=== PATIENT | female | born 1985 | race Caucasian/White ===

== ENCOUNTER 2022-05-25 12:41 | Emergency (ER) | payer OTHER ==
[2022-05-25 12:48] VITALS: BP 155/97
[2022-05-25] MEDS ORDERED: SPIRONOLACTONE 25 MG TABLET PO STA (12:58)
--- NOTE | 2022-05-25 13:03 | ED Physician Documentation ---
PD KEVIN PETERS - Stated complaint Stated Complaint: MED REFIL - Chief complaint Chief Complaint: General - History obtained from History obtained from: Patient - History of Present Illness Timing - onset: How many days ago (The patient states she typically takes spironolactone 150 mg daily for several diagnoses combined: Hypertension, PCOS, acne. She had moved here recently and there was a mixup with the [facility] pharmacy in the did not have her prescription. She is needing to get mail order and will take another wk) Timing - duration: Days (She has been out of her medicines for 5 or 6 days. She is having some mild cramping related to the PCOS. 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) Derm: Other (acne) - Present Medications Home Medications: Ambulatory Orders Medication Instructions Recorded Confirmed Spironolactone [Aldactone] 150 mg PO DAILY 20 Days #30 tablet 05/25/22 - Allergies Allergies/Adverse Reactions: Allergies Allergy/AdvReac Type Severity Reaction Status Date / Time doxycycline Allergy Nausea Verified 05/25/22 12:49 minocycline Allergy Hives Verified 05/25/22 12:49 nifedipine Allergy Edema Verified 05/25/22 12:49 oxycodone Allergy Unknown Verified 05/25/22 12:49 Penicillins Allergy Hives Verified 05/25/22 12:49 PD ED PE NORMAL - Vitals Vital signs reviewed: Yes - General General: Alert and oriented X 3, No acute distress, Well developed/nourished - Derm Derm: Normal color, Warm and dry - Neuro Neuro: Alert and oriented X 3, Normal speech - Psych Psych: Normal mood, Normal affect Results - Vitals Vitals: Vital Signs - 24 hr 05/25/22 12:45 Temperature 36.9 C Heart Rate 83 Respiratory 16 Rate Blood Pressure 155/97 H O2 Saturation 100 Oxygen O2 Source Room air PD Medical Decision Making - ED course Complexity details: considered differential (The patient is out of her medication and has no timely mechanism for refill and is asking for short-term prescription until her usual prescription is available. This is reasonable and I we will transmitted to [facility] pharmacy.), d/w patient Departure - Departure Disposition: 01 Home, Self Care Clinical Impression: Encounter for medication refill, PCOS (polycystic ovarian syndrome) Condition: Stable Record reviewed to determine appropriate education?: Yes Prescriptions: Spironolactone [Aldactone] 150 mg PO DAILY 20 Days #30 tablet Comments: I transmitted prescription for your spironolactone to [facility] pharmacy in [place]. I provided 3 weeks worth to allow time for you to get a new prescription from your primary care and have it mailed in. Continue usual medication dosage eating. Return as needed.
== END 2022-05-25 13:11 | disposition home or self-care (01) ==
LOC: ED 12:41
DX: Z76.0 Encounter for issue of repeat prescription (principal); E28.2 Polycystic ovarian syndrome; I10 Essential (primary) hypertension
CPT/HCPCS: 99282; A9270

== ENCOUNTER 2023-02-06 11:05 | Emergency (ER) | payer OTHER ==
[2023-02-06 11:24] VITALS: BP 158/94; O2SAT 96
[2023-02-06 11:34] LABS: BILIRUBIN,URINE NEGATIVE (NEGATIVE); CLARITY,URINE CLEAR (CLEAR); GLUCOSE, URINE (UA) NEGATIVE (NEGATIVE); KETONES,URINE (UA) NEGATIVE (NEGATIVE); LEUKOCYTE ESTERASE, URINE NEGATIVE (NEGATIVE); NITRITE,URINE NEGATIVE (NEGATIVE); OCCULT BLOOD,URINE TRACE-INTA (NEGATIVE); PROTEIN,URINE NEGATIVE (NEGATIVE); UROBILINOGEN,URINE 0.2 (NORMAL) E.U./dL (NORMAL)
--- NOTE | 2023-02-06 12:15 | ED Physician Documentation ---
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 - Present Medications Home Medications: Ambulatory Orders Medication Instructions Recorded Confirmed Spironolactone [Aldactone] 150 mg PO DAILY 20 Days #30 tablet 05/25/22 02/06/23 Cetirizine [ZyrTEC] 10 mg PO ONCE 02/06/23 02/06/23 FLUoxetine [PROzac] 40 mg PO DAILY 02/06/23 02/06/23 buPROPion HCL [Bupropion Xl] 150 mg PO DAILY 02/06/23 02/06/23 norethindrone-e.estradioL-iron 1 each PO DAILY 02/06/23 02/06/23 [Microgestin Fe 1.5-30 Tab] - Allergies Allergies/Adverse Reactions: Allergies Allergy/AdvReac Type Severity Reaction Status Date / Time doxycycline Allergy Nausea Verified 05/25/22 12:49 minocycline Allergy Hives Verified 05/25/22 12:49 nifedipine Allergy Edema Verified 05/25/22 12:49 oxycodone Allergy Unknown Verified 05/25/22 12:49 Penicillins Allergy Hives Verified 05/25/22 12:49 - Social History Does the pt smoke?: No Smoking Status: Never smoker Does the pt drink ETOH?: No Does the pt have substance abuse?: No - Immunizations Immunizations are current?: Yes Departure - Departure Forms: PCP List <Yifan Larios - Last Filed: 02/06/23 12:24> PD HPI FEMALE - History obtained from History obtained from: Patient - Additional information Additional information: 38-year-old woman who is otherwise healthy. 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 It responded to Monistat, but subsequently she got another 1 which did not respond to Monistat. She wants to be sure that it is a yeast infection. And would like a prescription treatment. Results - Vitals Vitals: Vital Signs - 24 hr 02/06/23 11:16 Temperature 36 C L Heart Rate 87 Respiratory 16 Rate Blood Pressure 158/94 H O2 Saturation 96 Oxygen O2 Source Room air - Labs Labs: Laboratory Tests 02/06/23 10:22 Urine Color YELLOW Urine Clarity CLEAR Urine pH 6.0 Ur Specific [place] 1.025 Urine Protein NEGATIVE Urine Glucose (UA) NEGATIVE Urine Ketones NEGATIVE Urine Occult Blood TRACE-INTA Urine Nitrite NEGATIVE Urine Bilirubin NEGATIVE Urine Urobilinogen 0.2 (NORMAL) Ur Leukocyte Esterase NEGATIVE Ur Microscopic Review NOT INDICATED Urine Culture Comments NOT INDICATED
--- NOTE | 2023-02-06 13:11 | ED Physician Documentation ---
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 Initially it was responsive to Monistat but subsequently had a recurrence which was not responsive to Monistat. 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 - Present Medications Home Medications: Ambulatory Orders Medication Instructions Recorded Confirmed Spironolactone [Aldactone] 150 mg PO DAILY 20 Days #30 tablet 05/25/22 02/06/23 Cetirizine [ZyrTEC] 10 mg PO ONCE 02/06/23 02/06/23 FLUoxetine [PROzac] 40 mg PO DAILY 02/06/23 02/06/23 Fluconazole 150 mg PO ONCE #1 tablet 02/06/23 buPROPion HCL [Bupropion Xl] 150 mg PO DAILY 02/06/23 02/06/23 metroNIDAZOLE [Flagyl] 500 mg PO BID 7 Days #14 tablet 02/06/23 norethindrone-e.estradioL-iron 1 each PO DAILY 02/06/23 02/06/23 [Microgestin Fe 1.5-30 Tab] - Allergies Allergies/Adverse Reactions: Allergies Allergy/AdvReac Type Severity Reaction Status Date / Time doxycycline Allergy Nausea Verified 05/25/22 12:49 minocycline Allergy Hives Verified 05/25/22 12:49 nifedipine Allergy Edema Verified 05/25/22 12:49 oxycodone Allergy Unknown Verified 05/25/22 12:49 Penicillins Allergy Hives Verified 05/25/22 12:49 - Social History Does the pt smoke?: No Smoking Status: Never smoker Does the pt drink ETOH?: No Does the pt have substance abuse?: No - Immunizations Immunizations are current?: Yes PD ED PE NORMAL - Vitals Vital signs reviewed: Yes - General General: Alert and oriented X 3, No acute distress - Female Female : Other (She did self swabs for STD and BV and yeast testing.) - Neuro Neuro: Alert and oriented X 3, Normal speech Results - Vitals Vitals: Vital Signs - 24 hr 02/06/23 11:16 Temperature 36 C L Heart Rate 87 Respiratory 16 Rate Blood Pressure 158/94 H O2 Saturation 96 Oxygen O2 Source Room air - Labs Labs: Microbiology 02/06/23 12:20 Wet Prep - Final Vaginal Laboratory Tests 02/06/23 02/06/23 10:22 12:20 Urine Color YELLOW Urine Clarity CLEAR Urine pH 6.0 Ur Specific [place] 1.025 Urine Protein NEGATIVE Urine Glucose (UA) NEGATIVE Urine Ketones NEGATIVE Urine Occult Blood TRACE-INTA Urine Nitrite NEGATIVE Urine Bilirubin NEGATIVE Urine Urobilinogen 0.2 (NORMAL) Ur Leukocyte Esterase NEGATIVE Ur Microscopic Review NOT INDICATED Urine Culture Comments NOT INDICATED C. glabrata (PCR) NEGATIVE C. krusei (PCR) NEGATIVE Ivon species DNA POSITIVE A T. vaginalis (PCR) NEGATIVE Bact Vaginosis (PCR) NEGATIVE PD Medical Decision Making - ED course ED course: Clue cells most consistent with BV although less than 20% but yeast negative, will treat with Flagyl pending BV PCR and STD testing which take much longer. Subsequent to discharge her vaginitis PCR was positive for Ivon. I sent a prescription for Diflucan 150 mg p.o. x1 to [facility] and called the patient to update her. She did not answer and I left a voicemail to call me back. Departure - Departure Disposition: 01 Home, Self Care Clinical Impression: Bacterial vaginosis Condition: Good Record reviewed to determine appropriate education?: Yes Instructions: ED Vaginosis Bacterial Prescriptions: metroNIDAZOLE [Flagyl] 500 mg PO BID 7 Days #14 tablet Comments: The initial testing looks like more likely bacterial vaginosis as opposed to yeast infection. This is not an STD. It is treated with antibiotics but something different than what we would use for yeast infection. More formal t esting is pending and we will call you for any changes. Do not drink alcohol while on the antibiotic. We will make you quite ill. Return if worse. Forms: PCP List Discharge Date/Time: 02/06/23 13:24
[2023-02-06 14:45] LABS: BACTERIAL VAGINOSIS DNA NEGATIVE (NEGATIVE); CANDIDA GLABRATA DNA NEGATIVE (NEGATIVE); CANDIDA GROUP DNA POSITIVE (NEGATIVE); CANDIDA KRUSEI DNA NEGATIVE (NEGATIVE); TRICHOMONAS VAGINALIS DNA NEGATIVE (NEGATIVE)
[2023-02-06 15:51] LABS: CHLAMYDIA TRACHOMATIS DNA NEGATIVE (NEGATIVE); NEISSERIA GONORRHOEAE DNA NEGATIVE (NEGATIVE)
== END 2023-02-06 13:24 | disposition home or self-care (01) ==
LOC: ED 11:05
DX: B37.31 Acute candidiasis of vulva and vagina (principal)
CPT/HCPCS: 81001; 81003; 81514; 87086; 87210; 87491; 87591; 87661; 99283; 99284

== ENCOUNTER 2023-05-05 11:00 | Outpatient (CLI) | payer OTHER ==
[2023-05-05 17:44] LABS: BASOPHILS % (AUTO) 0.4 %; EOSINOPHILS # (AUTO) 0.1 10^3/uL (0.0-0.7); EOSINOPHILS % (AUTO) 0.5 %; HCT - HEMATOCRIT 46.8 % (37.0-47.0); HGB - HEMOGLOBIN 14.7 g/dL (12.0-16.0); LYMPHOCYTES # (AUTO) 2.3 10^3/uL (1.5-3.5); LYMPHOCYTES % (AUTO) 23.1 %; MEAN CORPUSCULAR HEMOGLOBIN 28.1 pg (27.0-31.0); MEAN CORPUSCULAR HGB CONC 31.4 g/dL (32.0-36.0); MEAN CORPUSCULAR VOLUME 89.3 fL (81.0-99.0); MEAN PLATELET VOLUME 9.4 fL (7.9-10.8); MONOCYTES # (AUTO) 0.6 10^3/uL (0.0-1.0); MONOCYTES % (AUTO) 5.5 %; NEUTROPHILS % (AUTO) 70.2 %; PLT - PLATELET COUNT 451 10^3/uL (130-450); RED BLOOD COUNT 5.24 10^6/uL (4.20-5.40)
[2023-05-05 17:50] LABS: INFECTIOUS MONONUCLEOSIS NEGATIVE (Negative)
[2023-05-05 18:10] LABS: % IRON SATURATION 28 % (20-50); ALBUMIN 4.1 g/dL (3.2-5.5); ALBUMIN/GLOBULIN RATIO 1.4 (1.0-2.2); ALKALINE PHOSPHATASE 61 IU/L (42-121); ALT ALANINE AMINOTRANSFERASE 17 IU/L (10-60); AST ASPARTATE AMINOTRANSFERASE 12 IU/L (10-42); BILIRUBIN,TOTAL 0.4 mg/dL (0.2-1.0); BUN - BLOOD UREA NITROGEN 10 mg/dL (6-20); CALCIUM 9.8 mg/dL (8.5-10.3); CARBON DIOXIDE - CO2 28 mmol/L (21-32); CHLORIDE 101 mmol/L (101-111); CREATININE 0.7 mg/dL (0.6-1.3); CRP - C-REACTIVE PROTEIN 1.1 mg/dL (<0.5); GFR - MDRD 94 (>89); GLUCOSE 77 mg/dL (74-104); IRON 123 ug/dL (50-212); POTASSIUM 4.2 mmol/L (3.5-4.5); SODIUM 136 mmol/L (135-145); TOTAL IRON BINDING CAPACITY 442 ug/dL (250-450); TOTAL PROTEIN 7.1 g/dL (6.4-8.9); TRANSFERRIN 316 mg/dL (203-362)
[2023-05-05 18:26] LABS: THYROID STIMULATING HORMONE 0.85 uIU/mL (0.34-5.60)
[2023-05-05 18:32] LABS: FERRITIN 85.9 ng/mL (11.0-306.8)
[2023-05-05 18:39] LABS: LIPASE < 10 U/L (11-82)
[2023-05-05 21:26] LABS: ESTIMATED AVERAGE GLUCOSE 88 mg/dL (70-100); HEMOGLOBIN A1c% 4.7 % (4.27-6.07)
== END 2023-05-05 11:15 | disposition home or self-care (01) ==
LOC: LAB.N 11:00
PROVIDERS: ATTEND Registered Nurse
DX: G47.10 Hypersomnia, unspecified (principal); Z91.018 Allergy to other foods; E28.2 Polycystic ovarian syndrome; R11.0 Nausea; R53.83 Other fatigue; R53.81 Other malaise
CPT/HCPCS: 36415; 80053; 82728; 83036; 83540; 83690; 84443; 84466; 85025; 86140; 86308

== ENCOUNTER 2023-06-02 10:08 | Outpatient (CLI) | payer OTHER ==
--- NOTE | 2023-06-02 11:27 | Sleep Patient Instructions ---
Sleep Center Visit Summary - Patient Visit Information Reason for Visit: Initial consult for evaluation of sleep disordered breathing and other sleep issues. - Patient Instructions Instructions Attached: Sleep Study, Sleep Study Home Monitor Additional Instructions: You will be completing a sleep study, either an in-lab polysomnography (PSG) or home sleep study (HST). You will follow-up in the sleep care office after the sleep study is completed to hear the results and talk about therapy, if needed. You will be called by our office staff to schedule this appointment, but you may contact us with any questions. - Clinic Information Contact: [facility] [address] [place] [id number] [email or web address] T: [phone]
--- NOTE | 2023-06-02 11:31 | SLEEP CARE CONSULTATION ---
Information from patient questionnaire entered by Stephanie Wakefield. I have reviewed and concur with the information entered by Stephanie Wakefield. This document represents the service I personally performed and the decisions made by me, Skyla Jimenez ARNP. History of Present Illness Service Date and Time: 06/02/2023 1008 Reason for Visit: New patient Chief Complaint: reports: Unrefreshed sleep, Excessive daytime sleepiness, Fatigue, Frequent awakenings at night Date of Onset: 2-3 MONTHS increase; has been going on for long time Usual bedtime: 10PM Time it takes to fall asleep: 5MINS Snores at night: Yes (slight soft snore according to ) Observed to quit breathing while asleep: Yes (occasionally) Sleeps alone due to snoring: No Number of times waking at night: 2-3, usually only 1 Reasons for waking at night: reports: Bathroom, Other (NOISE). denies: Choking, Gasping for air Toss, Turn, or Twitch while sleeping: Yes Recalls having dreams: Yes Usually gets out of bed at: 7AM Feels refreshed in the morning: No Morning headache: No Sleepy or fatigued during the day: Yes Ever fallen asleep while driving: No Takes day naps: Yes (on weekends mostly, occasionally on Thursday if get home early; 3-4 hrs) Dreams during day naps: No Prior sleep studies: No Additional HPI information: I had the pleasure of seeing JAMILA QUINTANILLA today regarding the possibility of her having a sleep disorder. Her current complaints are unrefreshed sleep, excessive daytime sleepiness, fatigue and frequent night awakenings. She says she has been exhausted for a long time. She is really active with children activities and thought this was the reason. She says she will take 3-4 hour naps on weekends even after sleeping for 10 hours the previous night. She does not wake up feeling refreshed. She is treated for anxiety and depression and although it increased her energy for a time she is back to feeling exhausted. She says her says she only snores lightly and he has occasionally noted that she stopped breathing when sleeping. She denies waking up gasping for air or feeling like she is choking. She normally wakes up once to go to the bathroom. 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 Patient is and lives in [place]. Have you smoked in the past 12 months: No Alcohol use: No Caffeine use: Yes Caffeine amount and frequency: 1 CAN COKE 3X WEEK OR 1 ELINOR TEA LATTE Family History Family history of sleep disordered breathing: Yes (Aunt had CPAP) Family Hx Sleep Apnea: Mother: Snoring, Father: Snoring, Grandparent: Snoring, Sleep apnea - Treated Allergies and Home Medications Known drug allergies: Yes ( LISTED) Drug allergies reviewed: Yes Home medication list reviewed: Yes (see updated list in EMR) Allergy and home medication list: Allergies doxycycline Allergy (Verified 05/29/23 13:39) Nausea minocycline Allergy (Verified 05/29/23 13:39) Hives nifedipine Allergy (Verified 05/29/23 13:39) Edema oxycodone Allergy (Verified 05/29/23 13:39) Unknown Penicillins Allergy (Verified 05/29/23 13:39) Hives Review of Systems Weight loss over past 5 years: 5 Cardiovascular: reports: high blood pressure, palpitations Gastrointestinal: reports: difficulty swallowing, nausea Neurological: reports: headaches Psychiatric: reports: Attention Deficit Hyperactivity, anxiety, depression Ear/Nose/Throat: reports: nasal congestion, sinus problems, wisdom teeth removed. denies: tonsillectomy Endocrine: reports: sluggishness, too hot or cold, increased appetite Musculoskeletal: reports: neck pain, back pain, muscle pain or cramping Immunologic: reports: sneezing, rash, itching, allergies to food or environment (wheat, soy, sesame, lactose intolerant) Physical Exam Vital signs obtained and entered by: SYKLA CONNOR Blood Pressure: 129/86 Cuff size: wrist (left) Heart Rate: 89 O2 Saturation: 99 Height: 5 ft 5 in Weight: 247 lb Body Mass Index: 41.1 BMI Classification: Morbidly Obese Neck circumference: 14.5 (inches) Mouth and throat: normal Soft palate: normal Hard palate: normal Uvula: normal Uvula visualization: 100% Mallampati Class I Tongue: enlarged in size with teeth jean-baptiste on lateral edges Tonsils: 1+ Neck: normal w/o lymphadenopathy or thyromegaly Heart: regular rate and rhythm Lungs: clear bilaterally Impression and Plan 1. Suspected Obstructive Sleep Apnea-Hypopnea Syndrome, as suggested by a history of irregular snoring, observed cessation of breath while asleep, unrefreshed sleep, cognitive impairment, and excessive daytime sleepiness. Narrow oropharynx and obesity are common predisposing factors for obstructive sleep apnea-hypopnea syndrome. I recommend proceeding to polysomnography to con firm the diagnosis and to assess severity. If the patient has significant sleep disordered breathing, a manual CPAP titration study will also be performed to find the optimal treatment pressure. I informed the patient of what the sleep studies involve and after some discussion, obtained agreement to proceed. The pathophysiology of obstructive sleep apnea-hypopnea syndrome was discussed with the patient and health risks of cardiovascular and cerebrovascular disease if not treated. Risks of drowsy driving discussed in detail and patient advised to avoid long distance driving and to taffy puller at the first sign of drowsiness. Patient agreed to plan. * Schedule polysomnography * Avoid long distance driving or driving when feeling sleepy. * Avoid alcohol, sedative and muscle relaxant around bedtime. * Attempt to lose weight. * Review instructions provided by trained office staff on how to prepare for the sleep study. * Return for follow-up after sleep study completed. Counseling Topics: Weight loss health impact Follow up with Sleep Care in: other (after sleep study) Plan: PSG/HST Visit Type: In Office Time Spent with Patient (minutes): 31 Provider Statement: I spent 100% of the Face to Face Visit with the patient with greater than 50% spent counseling the patient and coordination of care.
[2023-06-02 11:46] VITALS: BP 129/86; O2SAT 99
== END 2023-06-02 10:09 | disposition home or self-care (01) ==
LOC: SC 10:08
PROVIDERS: ATTEND Nurse Practitioner Family
DX: R06.83 Snoring (principal); R06.81 Apnea, not elsewhere classified; G47.8 Other sleep disorders; R41.89 Other symptoms and signs involving cognitive functions and awareness; G47.10 Hypersomnia, unspecified; E66.01 Morbid (severe) obesity due to excess calories; Z68.41 Body mass index [BMI] 40.0-44.9, adult; R53.83 Other fatigue
CPT/HCPCS: 99203; 99212

== ENCOUNTER 2023-06-12 19:19 | Outpatient (CLI) | payer OTHER | END 2023-06-12 19:20 | disposition home or self-care (01) | LOC: SC 19:19 | PROVIDERS: ATTEND Nurse Practitioner Family | DX: G47.61 Periodic limb movement disorder (principal) | CPT/HCPCS: 95810 ==

== ENCOUNTER 2023-06-23 09:31 | Outpatient (CLI) | payer OTHER ==
--- NOTE | 2023-06-23 09:52 | Sleep Patient Instructions ---
Sleep Center Visit Summary - Patient Visit Information Reason for Visit: Sleep study follow-up - Patient Instructions Additional Instructions: You will be completing a sleep study, either an in-lab polysomnography (PSG) or home sleep study (HST). You will follow-up in the sleep care office after the sleep study is completed to hear the results and talk about therapy, if needed. You will be called by our office staff to schedule this appointment, but you may contact us with any questions. - Clinic Information Contact: [facility] [address] [place] [id number] [email or web address] T: [phone]
--- NOTE | 2023-06-23 10:00 | SLEEP CARE CONSULTATION ---
Information from patient questionnaire entered by Stephanie Wakefield. I have reviewed and concur with the information entered by Stephanie Wakefield. This document represents the service I personally performed and the decisions made by , Skyla Jimenez ARNP. History of Present Illness Service Date and Time: 06/23/2023930 Initial [place] Sleepiness Scale score: 14 (05/02/23) Current [place] Sleepiness Scale score: 12 Additional HPI information: JAMILA QUINTANILLA returns for follow up and results of the recently performed polysomnography. The patient was informed of the following findings: No significant sleep disordered breathing with an average AHI of 3.6 and [place] oxygen saturation of 87%. She has mild PLMs not contributing to sleep fragmentation. I explained the pathophysiology behind obstructive sleep apnea. Patient does not have sleep apnea and was advised how weight gain could increase the risk of developing sleep apnea in the future. I strongly encouraged the patient to lose weight. Patient has mild snoring. Patient was cautioned about risks of drowsy driving until sleepiness symptoms resolve. Patient denies drowsy driving. Sleep Study - Results Type of Sleep Study: Polysomnography (COMPLETED 06/12/23) Prior sleep studies: No Polysomnography/Home Sleep Study results: IMPRESSION: The quality of the study is good. The patient had minimally reduced sleep efficiency. Except for mild sleep fragmentation, the sleep architecture was normal. Respiratory monitoring showed no significant sleep disordered breathing (AHI = 3.6) or hypoxia ([place] oxygen saturation of 87%). The respiratory events occurred mainly during REM sleep (supine AHI = 0.0; non-supine = 3.78). Snore was light to loud in intensity. There was mild periodic leg movement of sleep not contributing to the sleep fragmentation. Cardiac rhythm was normal sinus rhythm without significant arrhythmia. No abnormal behavior (parasomnia) ob served during the night. Allergies and Home Medications Known drug allergies: Yes (as listed) Drug allergies reviewed: Yes Home medication list reviewed: Yes (no changes) Allergy and home medication list: Allergies doxycycline Allergy (Verified 06/19/23 10:43) Nausea minocycline Allergy (Verified 06/19/23 10:43) Hives nifedipine Allergy (Verified 06/19/23 10:43) Edema oxycodone Allergy (Verified 06/19/23 10:43) Unknown Penicillins Allergy (Verified 06/19/23 10:43) Hives Physical Exam Vital signs obtained and entered by: SKYLA CONNOR Blood Pressure: 159/89 Cuff size: regular Heart Rate: 90 O2 Saturation: 98 Height: 5 ft 5 in Weight: 248 lb 3.2 oz Body Mass Index: 41.3 BMI Classification: Morbidly Obese Impression and Plan 1. Suspected Obstructive Sleep Apnea-Hypopnea Syndrome, as suggested by a histor y of loud and irregular snoring, observed cessation of breath while asleep, frequent awakening during the night, unrefreshed sleep, cognitive impairment, and excessive daytime sleepiness. Patient completed an in lab PSG which showed no significant sleep disordered breathing however she had very little supine sleep. She did try to lay on her back but could not fall asleep when supine and the database technician recommended she ask for a sleep aid to help her to relax and fall asleep easier. I recommend proceeding to polysomnography to confirm the diagnosis and to assess severity. I obtained agreement to proceed. The pathophysiology of obstructive sleep apnea-hypopnea syndrome was discussed with the patient and health risks of cardiovascular and cerebrovascular disease if not treated. Risks of drowsy driving discussed in detail and patient advised to avoid long distance driving and to brisket puller at the first sign of drowsiness. Patient agreed to plan. 2. Periodic limb movement, mild, that did not fragment patients sleep. Periodic limb movement of sleep (PLMS) is characterized by episodes of repetitive limb movements that occur during sleep and usually involve the lower limbs. The marta ology is unknown. Caffeine can also aggravate PLMS and should be avoided. Sleep hygiene methods can also improve sleep as well as lifestyle changes such as regular exercise. Patient was advised that no treatment is needed at this time. If symptoms increase, then further evaluation is indicated. 3. Obesity, unspecified. Currently patients BMI is 41.3. Obesity increases the risk of apnea, CPAP pressure requirements and overall health risks especially cardiovascular and diabetes. Thus patient is advised to lose weight. * Schedule polysomnography +- manual CPAP titration study and return in 1-2 weeks after the study to discuss result and initiate therapy. * Zolpidem 5 mg for night of sleep study * Avoid long distance driving or driving when feeling sleepy. * Avoid alcohol, sedative and muscle relaxant around bedtime. * Attempt to lose weight. * Review instructions provided by trained office staff on how to prepare for the sleep study. * Return for follow-up after sleep study completed. Counseling Topics: Weight loss health impact Prescriptions: Other (Zolpidem 5 mg for night of sleep study) Follow up with Sleep Care in: other (after sleep study) Plan: PSG Visit Type: In Office Time Spent with Patient (minutes): 22 Provider Statement: I spent 100% of the Face to Face Visit with the patient with greater than 50% spent counseling the patient and coordination of care.
[2023-06-23 10:02] VITALS: BP 159/89; O2SAT 98
== END 2023-06-23 09:32 | disposition home or self-care (01) ==
LOC: SC 09:31
PROVIDERS: ATTEND Nurse Practitioner Family
DX: R06.83 Snoring (principal); G47.8 Other sleep disorders; R06.81 Apnea, not elsewhere classified; G47.10 Hypersomnia, unspecified; R53.83 Other fatigue; R41.89 Other symptoms and signs involving cognitive functions and awareness; F32.A Depression, unspecified; I10 Essential (primary) hypertension; E66.01 Morbid (severe) obesity due to excess calories; Z68.41 Body mass index [BMI] 40.0-44.9, adult
CPT/HCPCS: 99212; 99213

== ENCOUNTER 2023-10-26 10:14 | Emergency (ER) | payer OTHER ==
--- NOTE | 2023-10-26 12:02 | ED Physician Documentation ---
PD HPI BACK PAIN - Stated complaint Stated Complaint: LOWER BACK PX - Chief complaint Chief Complaint: Back Pain - History obtained from History obtained from: Patient - History of Present Illness Timing - onset: How many days ago (3) Timing - duration: Days (3) Timing - details: Abrupt onset, Still present Pain level max: 8 Pain level now: 8 Location: Mid, Lower, Right, Left Quality: Pain, Spasm, Sharp, Similar to prior episodes Associated symptoms: No: Fever, Weakness, Numbness, Incontinent of urine, Unable to urinate, Hematuria, Incontinent of stool Improves with: Rest, Position, Meds Worsened by: Movement, Twisting, Palpation Contributing factors: Other (has physical therapy for back pain and after therapy last week pain is much worse) Similar symptoms before: Diagnosis (lumbar pain) Recently seen: Other (seen for physical therapy no imaging has been done.) - Additional information Additional information: 38-year-old Vonnie Maloney has a history of chronic back pain and over the past year she has been undergoing physical therapy. She will occasionally have a worsening of her pain associated with the physical therapy and this past Thursday she had a significant increase in her back pain up to a 8 out of 10 level. She has pain bad enough that she is unable to go to work today. Review of Systems Constitutional: denies: Fever Respiratory: denies: Cough GI: denies: Vomiting, Diarrhea : denies: Dysuria, Frequency Musculoskeletal: reports: Back pain. 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: Ovarian cysts, Other Musculoskeletal: Chronic back pain Derm: Other - Past Surgical History Past Surgical History: Yes General: Other /GLUE MAKER BONE: section - Present Medications Home Medications: Ambulatory Orders Medication Instructions Recorded Confirmed Spironolactone [Aldactone] 150 mg PO DAILY 20 Days #30 tablet 05/25/22 10/26/23 Cetirizine [ZyrTEC] 10 mg PO ONCE 02/06/23 10/26/23 FLUoxetine [PROzac] 40 mg PO DAILY 02/06/23 10/26/23 buPROPion HCL [Bupropion Xl] 150 mg PO DAILY 02/06/23 10/26/23 norethindrone-e.estradioL-iron 1 each PO DAILY 02/06/23 10/26/23 [Microgestin Fe 1.5-30 Tab] Cholecalciferol (Vitamin D3) 1 cap PO DAILY 10/26/23 10/26/23 [Vitamin D3] Cyclobenzaprine [Flexeril] 10 mg PO TID PRN #20 tablet 10/26/23 HYDROcod/ACETAM 5/325 [Sixes 5/325] 1 - 2 tablet PO Q6H PRN #14 tablet 10/26/23 - Allergies Allergies/Adverse Reactions: Allergies Allergy/AdvReac Type Severity Reaction Status Date / Time doxycycline Allergy Nausea Verified 06/19/23 10:43 minocycline Allergy Hives Verified 06/19/23 10:43 nifedipine Allergy Edema Verified 06/19/23 10:43 oxycodone Allergy Unknown Verified 06/19/23 10:43 Penicillins Allergy Hives Verified 10/26/23 11:11 wheat Allergy Anaphylaxis Verified 10/26/23 11:11 - Social History Does the pt smoke?: No Smoking Status: Never smoker Does the pt drink ETOH?: No Does the pt have substance abuse?: No - Immunizations Immunizations are current?: Yes - POLST Patient has POLST: No PD ED PE NORMAL - Vitals Vital signs reviewed: Yes (hypertensive ) - General General: Alert and oriented X 3, No acute distress, Well developed/nourished - HEENT HEENT: Atraumatic, PERRL, EOMI - Respiratory Respiratory: No respiratory distress - Back Back: No CVA TTP, No spinal TTP, Other (mild point tenderness to the paraspinous muscles of the lower lumbar spine. No midline tenderness. ) - Derm Derm: Normal color, Warm and dry, No rash - Extremities Extremities: No deformity, No edema - Neuro Neuro: Alert and oriented X 3, joint terminal attack controller 2-12 intact, No motor deficit, No sensory deficit, Normal speech Eye Opening: Spontaneous Motor: Obeys Commands Verbal: Oriented GCS Score: 15 - Psych Psych: Normal mood, Normal affect Results - Vitals Vitals: Vital Signs - 24 hr 10/26/23 10/26/23 10:25 12:29 Temperature 36.3 C L Heart Rate 86 76 Respiratory 20 18 Rate Blood Pressure 151/90 H 146/86 H O2 Saturation 97 100 Oxygen O2 Source Room air PD Medical Decision Making - ED course Complexity details: reviewed results, re-evaluated patient, considered differential, d/w patient ED course: 38-year-old female undergoing physical therapy for chronic neck pain as an exacerbation of her back pain she is administered dexamethasone and Toradol with improvement will provide some pain medication a muscle relaxant for a short- term. She is encouraged to continue physical therapy and to seek imaging if she has no improvement. Departure - Departure Disposition: 01 Home, Self Care Clinical Impression: Back pain Qualifiers: Back pain location: low back pain Chronicity: chronic Back pain laterality: bilateral Sciatica presence: without sciatica Qualified Code(s): M54.50 - Low back pain, unspecified Condition: Stable Instructions: ED Low Back Pain Injury, ED Chronic Pain Management Follow-Up: [facility] [Provider Group] Prescriptions: Cyclobenzaprine [Flexeril] 10 mg PO TID PRN #20 tablet PRN Reason: Spasms HYDROcod/ACETAM 5/325 [Sixes 5/325] 1 - 2 tablet PO Q6H PRN #14 tablet PRN Reason: Pain Comments: Scyntha, today it looks like you have an exacerbation of your chronic back pain and we have given you some medication that may help quite a bit over the next day. We have given you some dexamethasone and some Toradol. If you continue to have pain that is not relieved by your usual medications of ibuprofen and Tylenol we have E scribed some pain medication to the [facility] in [place]. We have given you some muscle relaxant as well and this medication does not do anything specifically to the muscles but does make it easier for you to sleep and sometimes a bit of sleep is enough to improve things dramatically. If you do not have improvement in your pain a follow-up with your primary care doctor for referral for MRI may be indicated. Discharge Date/Time: 10/26/23 12:29
[2023-10-26] MEDS: DEXAMETHASONE 10 MG/ML VIAL PO STA ×2 (12:15→12:16)
[2023-10-26] MEDS: KETOROLAC 30 MG/ML VIAL IM STA (12:16)
[2023-10-26] MEDS: CHERRY SYRUP 10 ML UDC PO ONE (12:16)
[2023-10-26 12:32] VITALS: BP 146/86; O2SAT 100
== END 2023-10-26 12:29 | disposition home or self-care (01) ==
LOC: ED 10:14
DX: M54.50 Low back pain, unspecified (principal); G89.29 Other chronic pain
CPT/HCPCS: 96372; 99283; A9270

== ENCOUNTER 2023-10-30 19:20 | Outpatient (CLI) | payer OTHER | END 2023-10-30 19:21 | disposition home or self-care (01) | LOC: SC 19:20 | PROVIDERS: ATTEND Nurse Practitioner Family | DX: G47.33 Obstructive sleep apnea (adult) (pediatric) (principal); E66.01 Morbid (severe) obesity due to excess calories; Z68.41 Body mass index [BMI] 40.0-44.9, adult | CPT/HCPCS: 95810 ==

== ENCOUNTER 2023-11-14 06:57 | Outpatient (CLI) | payer OTHER ==
--- NOTE | 2023-11-16 12:25 | MRI Report ---
PROCEDURE: Lumbar Spine WO INDICATIONS: LOW BACK PAIN TECHNIQUE: Noncontrast sagittal T1 spin echo and T2 fast echo, sagittal STIR, axial T1 and T2 fast spin echo thr ough the lumbar spine. In cases with scoliosis, additional coronal T2 fast spin echo may be performe d. COMPARISON: None. FINDINGS: Image quality: Excellent. Alignment and Curvature: There is mild retrolisthesis at L5-S1. Bone Marrow: Marrow is of normal overall signal. Within the posterior aspect of the T11 vertebral tj dy, there is an 11 mm vertebral body hemangioma seen. No acute vertebral body compression fractures. Spinal Cord: Conus medullaris terminates at the L1 level. Visualized cord demonstrates normal signa l and size. Paraspinous Soft Tissues: No paravertebral masses. A 4.3 cm right ovarian cyst is noted. T12-L1: Normal in appearance. L1-L2: Normal in appearance. L2-L3: Normal in appearance. L3-L4: Normal in appearance. L4-L5: Normal in appearance. L5-S1: The disc height is well-preserved. There is loss of disc signal seen. Mild disc bulge is se en. A superimposed central disc protrusion is seen. Mild facet hypertrophy is seen. Mild bilatera l neural foraminal narrowing is seen. Minimal central canal narrowing is seen. IMPRESSION: Focal L5-S1 degenerative change is seen. There is a 4.3 cm right ovarian cyst seen. If clinically appropriate, please consider a short-term fo llow-up ultrasound in 6 weeks to ensure resolution/improvement. Reviewed by: Jerome Barnes MD on 11/16/2023 11:24 AM BUZZ Approved by: Jerome Barnes MD on 11/16/2023 11:24 AM BUZZ Station ID: [id number]
== END 2023-11-14 06:58 | disposition home or self-care (01) ==
LOC: DI 06:57
PROVIDERS: ATTEND Nurse Practitioner Family
DX: M51.27 Other intervertebral disc displacement, lumbosacral region (principal); M51.37 Other intervertebral disc degeneration, lumbosacral region; M48.07 Spinal stenosis, lumbosacral region; M47.817 Spondylosis without myelopathy or radiculopathy, lumbosacral region

== ENCOUNTER 2023-12-03 09:14 | Outpatient (CLI) | payer OTHER ==
--- NOTE | 2023-12-03 09:55 | Sleep Patient Instructions ---
Sleep Center Visit Summary - Patient Visit Information Reason for Visit: Sleep study follow-up - Patient Instructions Instructions Attached: CPAP Additional Instructions: You are being started on CPAP therapy with pressure setting at 4-15 cmH2O. You will need to call the sleep care office to set up your follow up once you have your CPAP machine to check compliance and response to therapy at that time. You may call the office with any concerns about pressure feeling too low or too much for adjustment, if needed. You should contact DME supplier for any questions or concerns about mask or equipment. Please call office to schedule a follow up appointment in the sleep care office one month after obtaining new device. - Clinic Information Contact: [facility] [address] [place] [address] [email or web address] T: [phone]
--- NOTE | 2023-12-03 09:59 | SLEEP CARE CONSULTATION ---
Information from patient questionnaire entered by Stephanie Wakefield. I have reviewed and concur with the information entered by Stephanie Wakefield. This document represents the service I personally performed and the decisions made by me, Skyla Jimenez ARNP. History of Present Illness Service Date and Time: 12/03/2023913 Initial [place] Sleepiness Scale score: 14 (05/02/23) Current [place] Sleepiness Scale score: 19 (12/03/23) Additional HPI information: JAMILA QUINTANILLA returns for follow up and results of the recently performed polysomnography. The sleep study done on 11/09/23 showed moderate obstructive sleep apnea with an average AHI of 15.8 and [place] oxygen saturation of 86%. I explained the pathophysiology behind obstructive sleep apnea. We then spent quite a bit of time discussing different treatment options. For mild obstru ctive sleep apnea, surgery and oral appliance are alternatives to nasal CPAP therapy but in moderate or severe cases, nasal CPAP is the most effective and reliable treatment. I reviewed the impact of weight changes on sleep apnea and strongly recommended losing weight. After some discussion, the patient opted to go with the nasal CPAP therapy. Nasal autoCPAP set at 4-15 cmH20 will be ordered with rationale explained. A manual titration study will be ordered if unable to find optimal pressure with office adjustments. I explained how CPAP machine works and what to expect when using the machine. Using CPAP every night in order to get used to it was emphasized. Patient advised to put CPAP mask on before getting into bed so as not to fall asleep without CPAP. To assist acclimation to CPAP use, it could also be used for a short time during day while reading or watching TV. The patient was instructed to call the CPAP supplier to discuss any mechanical problem that may occur. If the mask given is uncomfortable or is difficult to keep on through the night even with adjustment, contact the CPAP supplier as many will replace with another mask style if notified before 30 days. If sno ring or perceives is not getting enough air or too much air from the machine, notify this office. Patient counseled not drink alcohol less than 4 hours before bedtime as it can increase snoring and apnea. Patient was cautioned about risks of drowsy driving until sleepiness symptoms resolve. Sleep Study - Results Type of Sleep Study: Polysomnography (COMPLETED 02/16/24 7/05/24) Prior sleep studies: No Polysomnography/Home Sleep Study results: IMPRESSION: The quality of the study is good. The patient had normal sleep efficiency. The sleep architecture was abnormal for sleep fragmentation and reduced amount of time spent in REM sleep. Respiratory monitoring showed moderate obstructive sleep apnea-hypopnea (AHI = 15.8) associated with frequent arousals, oxyhemoglobin desaturation and mild hypoxia ([place] oxygen saturation of 86%). The patient only slept supine during this study (supine AHI = 15.8; non-supine = 0.00). Snore was loud in intensity. There was no significant periodic leg movement of sleep. Cardiac rhythm was normal sinus rhythm without significant arrhythmia. No abnormal behavior (parasomnia) observed during the night. Allergies and Home Medications Known drug allergies: Yes (as listed) Drug allergies reviewed: Yes Home medication list reviewed: Yes (no changes) Allergy and home medication list: Allergies doxycycline Allergy (Verified 12/03/23 09:26) Nausea minocycline Allergy (Verified 12/03/23 09:26) Hives nifedipine Allergy (Verified 12/03/23 09:26) Edema oxycodone Allergy (Verified 12/03/23 09:26) Unknown Penicillins Allergy (Verified 12/03/23 09:26) Hives wheat Allergy (Verified 12/03/23 09:26) Anaphylaxis Review of Systems Review of systems same as previous: Yes (NO CHANGE) Physical Exam Vital signs obtained and entered by: STEPHANIE Smith MA Blood Pressure: 155/90 (LEFT ARM) Cuff size: long Heart Rate: 77 O2 Saturation: 98 Height: 5 ft 5 in Weight: 250 lb 6.4 oz Body Mass Index: 41.6 BMI Classification: Morbidly Obese Impression and Plan 1. Obstructive Sleep Apnea-Hypopnea Syndrome, moderate, with lowest oxygen saturation of 86%. Obviously this is the cause of the patients symptoms of unrefreshed sleep, and excessive daytime sleepiness. Positive pressure therapy could benefit hypertension, insulin resistance, anxiety and depression. As mentioned above, the patient will be started on nasal autoCPAP therapy with pressure set at 4-15 cmH2O. A manual titration study will be completed if unable to find optimal treatment pressure with office adjustments. Compliance guidelines also reviewed. A copy of compliance guidelines will be given for reference at check out. Because the apnea is more severe supine, I instructed to avoid sleeping supine using pillow positioning until able to start CPAP use. 2. Obesity, unspecified. Currently patients BMI is 41.6. Obesity increases the risk of apnea, CPAP pressure requirements and overall health risks especially cardiovascular and diabetes. Thus patient is advised to lose weight. * Nasal auto CPAP therapy, pressure at 4-15 cmH2O. * Attempt to lose weight. * Avoid alcohol consumption near bedtime. * Avoid supine sleep until using CPAP. * The patient is again cautioned about driving until sleepiness completely resolves. * Return one month after CPAP obtained. I will assess response to therapy and compliance at that time. Counseling Topics: Weight loss health impact Prescriptions: Auto CPAP Plan: compliance followup after starting CPAP Visit Type: In Office Time Spent with Patient (minutes): 20 Provider Statement: I spent 100% of the Face to Face Visit with the patient with greater than 50% spent counseling the patient and coordination of care.
[2023-12-03 10:04] VITALS: BP 155/90; O2SAT 98
== END 2023-12-03 09:15 | disposition home or self-care (01) ==
LOC: SC 09:14
PROVIDERS: ATTEND Nurse Practitioner Family
DX: G47.33 Obstructive sleep apnea (adult) (pediatric) (principal); E66.01 Morbid (severe) obesity due to excess calories; Z68.41 Body mass index [BMI] 40.0-44.9, adult
CPT/HCPCS: 99212; 99213